=== PATIENT | female | born 1960 | race Caucasian/White ===

== ENCOUNTER 2017-03-07 20:33 | Emergency (ER) | payer BC ==
--- NOTE | ~2017-03-07 | ER ---
[facility] 56 Y [address] ROOM: [place] [address] LOCATION: ED ADMIT DATE: 03/07/2017 ER/Outpatient Report DISCHARGE DATE: 03/07/2017 FAMILY PHYSICIAN: PHYSICIAN, NO ATTENDING PHYSICIAN: Arsh Deshpande TIME OF ARRIVAL: 2032 hours. TIME OF EVALUATION: 2044 hours. CHIEF COMPLAINT: Infected left finger. HISTORY OF PRESENT ILLNESS: This is a 56-year-old female, who presents to the ER, who states she has had swelling off and on her left middle finger for approximately 6 months. She states that at times it will drain some clear fluid out of it, but then lately she got a little bit of a purulent drainage out of it. She states she has not been running any fevers. She did take 2 [place] prior to arrival along with 4 beers to help with her pain. She denies any other problems at this time. ALLERGIES: PLEASE SEE MEDICATION LIST IN NURSE'S NOTES. MEDICATIONS: Please see medication list nurse's notes. PAST MEDICAL HISTORY: She has nightmares, anxiety, depression. PAST SURGICAL HISTORY: She has had a left lumbar spine fusion, a lumpectomy, and a hysterectomy. SOCIAL HISTORY: She smokes 1 pack of cigarettes for the last 4 years. Drinks alcohol daily. REVIEW OF SYSTEMS: All systems reviewed and were negative with the exception of those discussed in the HPI. PHYSICAL EXAMINATION: VITAL SIGNS: Height 5 feet 4 inches stated, weight 61.5 kg taken, blood pressure is 107/67, pulse 86, respirations 20, temperature 97.3 degrees PATIENT'S NAME: KAREN MANUEL [facility] AGE: 56 Y [address] ROOM: [place] [address] LOCATION: ED ADMIT DATE: 03/07/2017 ER/Outpatient Report DISCHARGE DATE: 03/07/2017 FAMILY PHYSICIAN: PHYSICIAN, NO ATTENDING PHYSICIAN: Arsh Deshpande tympanically. Saturations 91% on room air. [place] Coma Score is 15. GENERAL: An alert, anxious female, in mild distress. LUNGS: Clear to auscultation bilaterally. HEART: Regular rate and rhythm. EXTREMITIES: No clubbing or cyanosis. She does have decreased range of motion of her left middle finger secondary to pain. She has a small pustule noted to the DIP joint of the left middle finger. There is no erythema. No active drainage, but she is tender to palpate in that area. LABORATORY DATA AND X-RAYS: Wound culture was done to the pustule. X-rays: None were done. IMPRESSION: Mild cellulitis of the distal aspect of her left middle finger. ASSESSMENT AND PLAN: We did give the patient Toradol 60 mg IM. We did numb around the pustule site with 1% lidocaine. We cleansed site with Betadine and flushed with normal saline and made a small puncture wound with an 18-gauge needle and expressed a small amount of purulent drainage from the area. The patient did tolerate this well. We will dismiss her to home. She needs to do warm compresses to the finger. Monitor the skin closely. We did give her a [facility] that [facility] needs to follow up within one week. We did cover her with Bactrim to use as directed, and the patient understands and agrees with care. CRISTINA TOBIAS PA-C FOR MD MAXX HUDSON/ehsan /[id number] d: t: 03/13/17 1236, OUTPATIENT REPORT
== END 2017-03-07 21:28 | disposition disaster alternative care site (69) ==
LOC: GMED 20:33
PROC: 0H9GXZZ Drainage of Left Hand Skin, External Approach (ICD-10-PCS; principal; 2017-03-07)
DX: L03.012 Cellulitis of left finger (principal); F41.9 Anxiety disorder, unspecified; F32.9 Major depressive disorder, single episode, unspecified; F17.210 Nicotine dependence, cigarettes, uncomplicated; Z98.1 Arthrodesis status; Z90.710 Acquired absence of both cervix and uterus; Z88.1 Allergy status to other antibiotic agents; Z88.8 Allergy status to other drugs, medicaments and biological substances; Z79.1 Long term (current) use of non-steroidal anti-inflammatories (NSAID)
CPT/HCPCS: J1885